=== PATIENT | female | born 1980 | race Caucasian/White ===

== ENCOUNTER 2022-09-07 14:41 | Outpatient (CLI) | payer OTHER, SELFPAY ==
--- NOTE | 2022-09-07 14:45 | CRLHL7_ITS ---
For Patients: As a result of the Century Cures Act, medical imaging exams and procedure reports are released immediately into your electronic medical record. You may view this report before your referring provider. If you have questions, please contact your health care provider. INDICATION: PALPABLE CORD, LEFT MEDIAL CALF COMPARISON: None. TECHNIQUE: A compression venous ultrasound exam was performed of the left lower extremity using mckeon-scale imaging, color Doppler and spectral Doppler analysis. FINDINGS: Sonographic imaging of the left lower extremity demonstrates normal compressibility and color Doppler venous blood flow within the common femoral vein, deep femoral vein, and the proximal greater saphenous vein. Within the thigh, the femoral vein is patent and compressible. At a lower level, the popliteal and posterior tibial veins also show normal compressibility and color Doppler venous blood flow. Limited imaging of the contralateral groin demonstrates a normal spectral waveform and color Doppler venous blood flow within the right common femoral vein. IMPRESSION: Normal venous ultrasound exam. No evidence of deep vein thrombosis within the left lower extremity. Dictated by Hiram Sims MD @ 09/07/2022 4:20:50 PM (Electronically Signed)
== END 2022-09-07 14:42 | disposition home or self-care (01) ==
PROVIDERS: PCP Physician Assistant Medical; Visit Provider Physician Assistant Medical
DX: M79.662 Pain in left lower leg (principal)
CPT/HCPCS: 93971

== ENCOUNTER 2023-01-03 09:45 | Outpatient (RCR) | payer OTHER, SELFPAY ==
--- NOTE | 2022-09-22 12:47 | PT.OPE ---
PT [place] [facility] Eval PT [facility] Start: 09/21/22 12:06 Freq: Status: Active Protocol: Document 09/21/22 13:39 BMS (Rec: 09/21/22 13:39 BMS [id number]) E-signed By Orly Grier PT Physical Therapy Outpatient Evaluation Insurance Information Recert Due Date 12/19/22 Insurance Name [employer] Headaches R51.9 chronic pain G89.29 cervicalga M54.2 M72.2 plantarfasciitis Treating Diagnosis Headaches R51.9 chronic pain G89.29 cervicalga M54.2 M72.2 plantarfasciitis Referring MD Laura Ash Subjective Subjective headaches as long as I can remember, neck and tightness into scap on L also for ~ last 2 years. headaches tend to be left neck to head and forehead. L shoulder clicking with weights. try to work out helps manage stress. Have 2 14 year olds, work 30+ hours/ week. hx depression Get dizzy sometimes when I stand up. They told me years ago I should be doing some eye exercises but I was too busy. Had xrays - 2 mall bone spurs have hard area in my calf but US was clear in vascular lab. by end of day is very frustrating and exhausting hard to focus, sensitivity to light and sounds. . foot I cannot run or jump bc pain. have tried stretching, kinesiotape helps some. , have tried depression meds, ibp, tylenol, the mm relaxers help the most but cant' live on those. 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 massage helps. I tried running x 2 and that really made my foot hurt, wear insoles, etc so I stopped running. Pain Comments 4/10 now, 7-8/10 worst neck and headaches kirit L L foot 2-3/10 now, gets to 9/ 10 worst. 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 rotation mild loss with tightness and pain Strength MMT seated cervical flex/ext/B SB 5/5 Palpation myofascial restrictions through L>R UT, levator and into paraspinals as well as scalenes. B pectoral tightness . decreased PA mobs through mid thoracic, area of restriction T10-12. Significant myofascial restriction with long axis manual distraction from subocciput through thoracic - mild ot mod restricted C0-2 w rotation Balance & Gait not assessed Posture mild head forward, mild L thoracolumbar able to correct with readjust seated position. decreased cervical lordosis Other/Pertinent Objective see obj eval Assessment Assessment/Impression Patient is very pleasant 41 yo female referred for chronic headaches, neck pain, plantar fascia pain. She is more affected by neck and headaches this date. 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 Past medical hx + for WPW successfully resolved w radiofrequency ablation ~ 2 years ago, depression. She works out at gym on elliptical and body weight/light weights . Tried running x 2 which flared up significant plantar fascia pain (rated 2-9/10) and reports a hard lump on medial L calf (had a clear ultrasound for vascularity) - further assess on this to rossi due to time constraints this date. Headaches and neck pain limit looking over shoulders, looking up, is very frustrating and exhausting, making it hard to focus both mentally and eyes and with light and sound sensitivity. Headaches 4-8/10, tend to be left sided for past ~2 years though has had SANCHEZ as long as she can remember. 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 Past treatments include: tylenol+ ibp+caffeine helpsome, mm relaxants help a lot but cannot take frequently, massage helps, chiro did not make a lasting significant difference, has not used TENS nor acupuncture, Reports jaw tightness, did use Invisiline but found herself clenching more. Has some laterality of L condyle with jaw opening and closing but wihtout pop or click. Visible hyerptrophy/ hypertonic L UT scalenes and L scap slightly fwd and mild wing with UE elevation. Lowtrap able to activate but weak with sustained holds. Patient will benefit from skilled physical therapy to imrpove movement patterns/ balance strength/weakness, further vestibular eval and treat this contribution to headaches, further assess/ treat of L plantar fascia. Anticipate good to excellent prognosis though lifestyle modifications may be difficult for her to incorporate. Plan of Care Rehabilitation Potential Good Physical Therapy Goals 1. Pt demo I with home program for self management of symtpoms, for scap stab and breathing and for foot as appropriate to be determined in future sessions. 2. Patient demo abilty to perform her gym workout and daily activities without compensation from neck and head mm. 3. Pt demo full AROM without pain - allowing driving without increased pain ( checking over shoulder, mirrors, etc) 4. complete foot assessment and execute plan 5. Further assess vestibular component of headaches and poss underling vertigo vs vestibular hypofunction. 6. Pt report ability to complete workday without pain > 2/10 in neck and or headache . Coordination/Communication With Referral Source Treatment Plan/Direct Interventions Canalith Repositioning, Electrical Stimulation,Heat, Ice/Cold/Vasopneumatic,Manual Therapy,Neuromuscular Re-ed, Self-Care/Home Management, Therapeutic Activities, Therapeutic Exercises,Traction (Mechanical) Direct Interventions Clarification poss ktape, vs postural taping Comments Frequency/Duration 1-2x/ week x 4-12 weeks pending progress and ability to self manage Patient Will Be Discharged From Therapy Completion of LTG(s),Skills Plateau,Independent w/HEP, Independently Progressing Evaluation Billing Untimed Code Treatment Minutes 35 PT Eval No Charge No Complexity Moderate Certification Information Physician Comment/Change : Physician NPI Number #
== END 2023-05-23 23:59 | disposition home or self-care (01) ==
PROVIDERS: PCP Physician Assistant Medical; Visit Provider Physician Assistant Medical
DX: M54.2 Cervicalgia (principal); R51.9 Headache, unspecified; G89.29 Other chronic pain; M72.2 Plantar fascial fibromatosis; Z51.89 Encounter for other specified aftercare
CPT/HCPCS: 97012; 97110; 97112; 97140; 97162; 97535

== ENCOUNTER 2023-02-28 09:07 | Outpatient (CLI) | payer OTHER, SELFPAY ==
--- NOTE | 2023-02-28 09:15 | CRLHL7_ITS ---
For Patients: As a result of the Cures Act, medical imaging exams and procedure reports are released immediately into your electronic medical record. You may view this report before your referring provider. If you have questions, please contact your health care provider. BILATERAL SCREENING MAMMOGRAM WITH COMPUTER-AIDED DETECTION AND TOMOSYNTHESIS TECHNIQUE: CC and MLO views were obtained. These mammographic images have been obtained using full-field digital technique. These mammographic images were interpreted with the benefit of computer-aided detection. Breast Tomosynthesis was used in this interpretation. COMPARISON FILM: 11/30/21, 07/31/18, 07/31/17. FINDINGS: The breasts are heterogeneously dense, which may obscure small masses IMPRESSION: There is no radiographic evidence for malignancy. ASSESSMENT: BI-RADS Category 1: Negative RECOMMENDATION: Routine screening mammogram in 1 year. A lay language report of this examination will be provided to the patient. TIGIST ESQUIVEL M.D. Diagnostic/Nuclear Medicine Radiologist [email or web address] LONNY:[email or web address] Transcribed: 1:17 p.mRadha winchester/Dictated by: Tigist Esquivel MD @ 02/28/2023 10:47:00 AM (Electronically Signed)
== END 2023-02-28 09:08 | disposition home or self-care (01) ==
LOC: MAMMO 09:08
PROVIDERS: PCP Physician Assistant Medical; Visit Provider Physician Assistant Medical
DX: Z12.31 Encounter for screening mammogram for malignant neoplasm of breast (principal); R92.2 Inconclusive mammogram
CPT/HCPCS: 77063; 77067

== ENCOUNTER 2023-12-24 10:39 | Outpatient (REF) | payer OTHER, SELFPAY | END 2023-12-24 10:40 | disposition home or self-care (01) | LOC: NFLDREF 10:39 | PROVIDERS: PCP Physician Assistant Medical; Referring Provider Physician Assistant Medical; Visit Provider Physician Assistant Medical | DX: Z13.29 Encounter for screening for other suspected endocrine disorder (principal); Z13.220 Encounter for screening for lipoid disorders; Z13.228 Encounter for screening for other metabolic disorders | CPT/HCPCS: 80053; 80061; 84443 ==

== ENCOUNTER 2024-02-07 10:52 | Outpatient (CLI) | payer OTHER, SELFPAY ==
--- NOTE | 2024-02-07 12:08 | W.ANESCHARGE ---
Anesthesia Charges Start Date/Time Anesthesia Start Date: 02/07/24 Anesthesia Start Time: 11:44 Stop Date/Time Anesthesia Stop Date: 02/07/24 Anesthesia Stop Time: 12:05
== END 2024-02-07 10:53 | disposition home or self-care (01) ==
LOC: OP CLINIC 10:53
PROVIDERS: PCP Physician Assistant Medical; Visit Provider Internal Medicine
DX: Z12.11 Encounter for screening for malignant neoplasm of colon (principal); K63.5 Polyp of colon
CPT/HCPCS: 00812; 45380; 88305; J2704

== ENCOUNTER 2024-08-10 17:42 | Outpatient (CLI) | payer OTHER, SELFPAY | END 2024-08-10 17:43 | disposition home or self-care (01) | PROVIDERS: PCP Physician Assistant Medical; Visit Provider Physician Assistant Medical | DX: R00.2 Palpitations (principal) | CPT/HCPCS: 80053; 83735; 84443 ==

== ENCOUNTER 2024-08-17 08:35 | Outpatient (CLI) | payer OTHER, SELFPAY | END 2024-08-17 08:36 | disposition home or self-care (01) | LOC: NFLDREF 08-19 09:57 | PROVIDERS: PCP Physician Assistant Medical; Referring Provider Physician Assistant Medical; Visit Provider Physician Assistant Medical | DX: R00.2 Palpitations (principal) | CPT/HCPCS: 82533 ==

== ENCOUNTER 2025-01-14 11:25 | Outpatient (CLI) | payer OTHER, SELFPAY ==
--- NOTE | 2025-01-14 11:30 | CRLHL7_ITS ---
For Patients: As a result of the Century Cures Act, medical imaging exams and procedure reports are released immediately into your electronic medical record. You may view this report before your referring provider. If you have questions, please contact your health care provider. BILATERAL DIGITAL SCREENING MAMMOGRAM WITH COMPUTER-AIDED DETECTION AND TOMOSYNTHESIS CLINICAL HISTORY: Routine screening exam. COMPARISON: 02/28/23, 11/30/21, 08/04/20. TECHNIQUE: Digital mammogram in CC and MLO projections including computer-aided detection (CAD). Tomosynthesis was used in this interpretation. BREAST COMPOSITION: The breasts are heterogeneously dense, which may obscure small masses. FINDINGS: RIGHT Breast: No suspicious findings. LEFT Breast: Focal asymmetric density within the lower inner quadrant 4 cm from the nipple. IMPRESSION: LEFT breast asymmetry/mass. RECOMMENDATIONS: Additional mammographic views of the LEFT breast including 3D spot compression CC/MLO. LEFT breast ultrasound may also be required. The [facility] will contact the patient. A lay language report of this examination will be provided to the patient. BI-RADS Category 0: Incomplete: Need Additional Imaging Evaluation Dictated by Hiram Sims MD @ 01/15/2025 9:36:43 AM jj/Dictated by: Hiram Sims MD @ 01/15/2025 9:36:00 AM (Electronically Signed)
== END 2025-01-14 11:26 | disposition home or self-care (01) ==
LOC: MAMMO 11:26
PROVIDERS: PCP Physician Assistant Medical; Visit Provider Physician Assistant Medical
DX: Z12.31 Encounter for screening mammogram for malignant neoplasm of breast (principal); N63.20 Unspecified lump in the left breast, unspecified quadrant; R92.333 Mammographic heterogeneous density, bilateral breasts
CPT/HCPCS: 77063; 77067

== ENCOUNTER 2025-01-19 09:27 | Outpatient (CLI) | payer OTHER, SELFPAY ==
--- NOTE | 2025-01-19 09:45 | CRLHL7_ITS ---
For Patients: As a result of the Century Cures Act, medical imaging exams and procedure reports are released immediately into your electronic medical record. You may view this report before your referring provider. If you have questions, please contact your health care provider. CLINICAL HISTORY: LEFT breast mass/asymmetry. COMPARISON: 01/14/25, 02/28/23, 11/30/21 TECHNIQUE: Digital LEFT mammogram in 2 projections. Tomosynthesis was used in this interpretation. Real-time ultrasound imaging of LEFT breast with imaging documentation. Scanning was performed by both the technologist and the radiologist. BREAST COMPOSITION: There are scattered areas of fibroglandular density. FINDINGS: 3D spot compression CC/MLO left breast mammogram images submitted. Persistent asymmetric density with architectural distortion within the medial left breast CC view. Targeted left breast ultrasound performed at 8 o`clock 5 cm from the nipple. At this location, there is a small subtle hypoechoic mass with distal acoustic shadowing measuring 4 x 4 x 4 millimeters. IMPRESSION: Subtle 4 millimeter hypoechoic shadowing lesion at mid depth left breast 8 o`clock 5 cm from the nipple. RECOMMENDATIONS: Ultrasound-guided core needle biopsy. A lay language report of this examination will be provided to the patient. BI-RADS Category 4. Suspicious. Dictated by Hiram iSms MD @ 01/19/2025 10:41:46 AM (Electronically Signed)
--- NOTE | 2025-01-19 10:15 | CRLHL7_ITS ---
For Patients: As a result of the Cures Act, medical imaging exams and procedure reports are released immediately into your electronic medical record. You may view this report before your referring provider. If you have questions, please contact your health care provider. SEE DIGITAL DIAGNOSTIC LEFT MAMMOGRAM PERFORMED SAME DAY CRL:[email or web address] winchester/Dictated by: Hiram Sims MD @ 01/19/2025 10:39:00 AM (Electronically Signed)
== END 2025-01-19 09:28 | disposition home or self-care (01) ==
LOC: MAMMO 09:28
PROVIDERS: PCP Physician Assistant Medical; Visit Provider Obstetrics & Gynecology
DX: N63.20 Unspecified lump in the left breast, unspecified quadrant (principal); R92.8 Other abnormal and inconclusive findings on diagnostic imaging of breast
CPT/HCPCS: 76642; 77065; G0279

== ENCOUNTER 2025-01-21 09:06 | Outpatient (CLI) | payer OTHER, SELFPAY ==
--- NOTE | 2025-01-21 09:15 | CRLHL7_ITS ---
For Patients: As a result of the Century Cures Act, medical imaging exams and procedure reports are released immediately into your electronic medical record. You may view this report before your referring provider. If you have questions, please contact your health care provider. ULTRASOUND-GUIDED BREAST BIOPSY AND POST-BIOPSY DIGITAL MAMMOGRAM FOR BIOPSY MARKER PLACEMENT CLINICAL HISTORY: Indeterminate lesion LEFT breast. COMPARISON STUDIES: 01/19/2025. TECHNIQUE: Real-time ultrasound with image documentation was used for targeting the breast lesion. Core biopsy specimens were obtained using an automated gun with a 16-gauge biopsy needle. Post-biopsy CC and ML digital mammograms were obtained to document position of the biopsy marker. CONSENT and TIME OUT: The procedure, risks, and alternatives were explained to the patient and a consent was signed. Reese Protocol was followed including pre-procedure verification that relevant information/documentation was available, reviewed and properly matched to the patient; consent accurate and complete; and equipment and supplies available. Time Out was conducted just prior to starting procedure to verify the four required elements: patient identity, correct side/site marked (if applicable), procedure, relevant images/results properly labeled and displayed (if applicable). PROCEDURE: The patient was positioned supine on the ultrasound table. The breast was prepped with ChloraPrep. 6 cc of 1 percent lidocaine used for local anesthesia. Core samples were obtained. A sterile metal biopsy clip was placed percutaneously to jennifer the lesion position within the breast. The specimens were placed in 10% formalin and sent to the pathology department. Pressure was held on the biopsy site until all bleeding subsided. The skin incision was closed with Steri-Strips. An ice pack was positioned over the biopsy site. Post-biopsy instructions were reviewed with the patient, and a written copy was given to her. LATERALITY: LEFT breast. LESION: Hypoechoic solid nodule measuring 4 x 4 x 4 millimeters at 8 o`clock 5 cm from the nipple. SUSPICION FOR MALIGNANCY: High. NUMBER OF SAMPLES: 6. BIOPSY CLIP SHAPE: Oval. PROXIMITY OF CLIP TO TARGET: Within the lesion. IMPRESSION: Ultrasound-guided breast biopsy. When the pathology report is available, an addendum to this report will be made. ACR not applicable Dictated by Hiram Sims MD @ 01/21/2025 10:05:56 AM jj/Dictated by: Hiram Sims MD @ 01/21/2025 10:05:00 AM (Electronically Signed)
--- NOTE | 2025-01-21 10:00 | CRLHL7_ITS ---
For Patients: As a result of the Century Cures Act, medical imaging exams and procedure reports are released immediately into your electronic medical record. You may view this report before your referring provider. If you have questions, please contact your health care provider. SEE ULTRASOUND-GUIDED LEFT BREAST BIOPSY PERFORMED SAME DAY CRL:ranulfo winchester/Dictated by: Hiram Sims MD @ 01/21/2025 10:13:00 AM (Electronically Signed)
--- NOTE | 2025-01-26 08:34 | ONC.NURNOTE ---
Reviewed updated breast pathology with receptors, ki 67 results with pt via phone; she verbalizes understanding.
== END 2025-01-21 09:07 | disposition home or self-care (01) ==
LOC: US 09:06
PROVIDERS: PCP Physician Assistant Medical; Visit Provider Physician Assistant Medical
DX: N63.20 Unspecified lump in the left breast, unspecified quadrant (principal); C50.912 Malignant neoplasm of unspecified site of left female breast
CPT/HCPCS: 19083; 77065; A4648; A4649

== ENCOUNTER 2025-02-03 07:08 | Outpatient (CLI) | payer OTHER, SELFPAY ==
--- NOTE | 2025-02-03 07:15 | CRLHL7_ITS ---
For Patients: As a result of the 21st Century Cures Act, medical imaging exams and procedure reports are released immediately into your electronic medical record. You may view this report before your referring provider. If you have questions, please contact your health care provider. BILATERAL BREAST MRI WITHOUT AND WITH GADOLINIUM CLINICAL HISTORY: 44-year-old with recent diagnosis of left breast invasive lobular carcinoma, grade 2 and associated LCIS. Located in left lower inner quadrant, 8 o`clock position, 4-5 cm from nipple. Associated with mammographic asymmetry and architectural distortion, and sonographic 0.4 cm hypoechoic mass with posterior shadowing. INDICATION FOR BREAST MRI: Staging of newly diagnosed breast cancer and screening of contralateral breast. Regional lymph nodes will also be assessed. COMPARISON STUDIES: No previous MRIs. Screening mammogram 01/14/2025 and other prior mammograms dating back to 08/04/2020, diagnostic mammogram and ultrasound 01/19/2025, ultrasound-guided needle core biopsy and post biopsy clip placement mammogram 01/21/2025. CONTRAST: 14 cc Dotarem TECHNIQUE: The patient was positioned prone using a breast coil. Multiple imaging sequences were obtained using 1-1.5 mm thick slices with no gap. The image sequences include T2-weighted STIR in the axial plane, T1-weighted nonfat-saturated gradient echo in the axial plane, pre- and post-contrast T1-weighted FLASH 3D with fat suppression in the axial plane, and T1-weighted FLASH high resolution 3D with fat suppression in the sagittal plane. Image post-processing was performed on a Plug[employer] workstation. Complex 3D rendering including maximum intensity projections (MIPS) and volumetric renderings were obtained to optimize visualization of the extent of pathology and relationship to the nipple, skin, and chest wall. This aids in determining feasibility of breast conservation surgery. Subtraction, multiplanar reconstruction, mean curve determination, and angiogenesis mapping were also performed. The study was technically adequate. FINDINGS: Amount of Fibroglandular Tissue: Scattered fibroglandular tissue. Breast Background Enhancement: Mild. RIGHT Breast: No suspicious findings. LEFT Breast: Left 8 o`clock, 4 cm from nipple: -Biopsied 0.5 x 0.4 cm oval irregular mass with associated clip artifact showing rapid initial uptake and plateau delayed kinetics. -There is linear non-mass enhancement extending 1.1 cm anteromedial from the biopsied carcinoma, to within 3 cm of nipple. Sub threshold persistent kinetics. This likely correlates to mammographic distortion and a few calcifications in this region. Left 10 o`clock, 2 cm from nipple: Linear clumped non-mass enhancement measuring 1.1 cm AP x 0.9 cm medial-lateral. Sub threshold persistent kinetics. Lymph Nodes: No axillary or internal mammary lymphadenopathy. IMPRESSIONS AND RECOMMENDATIONS: 1. Left 8 o`clock, 4 cm from nipple: 0.5 cm biopsied oval irregular carcinoma with 1.1 cm suspicious linear non-mass enhancement extending anteromedial from the biopsied mass, to within 3 cm of nipple. Likely correlates to mammographic distortion and a few calcifications in this region. Consider extension of lumpectomy margins if breast conservation is planned. 2. Left 10 o`clock, 2 cm from nipple: Suspicious 1.1 x 0.9 cm linear clumped non-mass enhancement. Recommend MRI guided needle core biopsy. BI-RADS Category 4: Suspicious Dictated by Leny Milner MD @ 02/03/2025 4:37:45 PM (Electronically Signed)
== END 2025-02-03 07:09 | disposition home or self-care (01) ==
LOC: MRI 07:09
PROVIDERS: PCP Physician Assistant Medical; Visit Provider Surgery
DX: C50.912 Malignant neoplasm of unspecified site of left female breast (principal)
CPT/HCPCS: 77049; A9575

== ENCOUNTER 2025-02-11 10:55 | Outpatient (CLI) | payer OTHER, SELFPAY | END 2025-02-11 10:56 | disposition home or self-care (01) | LOC: NFLDREF 10:55 | PROVIDERS: PCP Physician Assistant Medical; Visit Provider Obstetrics & Gynecology | DX: R63.5 Abnormal weight gain (principal) | CPT/HCPCS: 84443 ==

== ENCOUNTER 2025-02-25 11:09 | Outpatient (CLI) | payer OTHER, SELFPAY | END 2025-02-25 11:10 | disposition home or self-care (01) | LOC: NFLDREF 03-01 00:03 | PROVIDERS: PCP Physician Assistant Medical; Referring Provider Physician Assistant Medical; Visit Provider Physician Assistant Medical | DX: Z13.6 Encounter for screening for cardiovascular disorders (principal); Z13.1 Encounter for screening for diabetes mellitus | CPT/HCPCS: 80061; 82947 ==

== ENCOUNTER 2025-03-02 08:01 | Day surgery (SDC) | payer OTHER, SELFPAY ==
--- NOTE | 2025-03-02 07:52 | CRLHL7_ITS ---
For Patients: As a result of the Century Cures Act, medical imaging exams and procedure reports are released immediately into your electronic medical record. You may view this report before your referring provider. If you have questions, please contact your health care provider. INDICATION: Cough, low-grade fever, preoperative assessment. COMPARISON: 08/10/2024 TECHNIQUE: 1 view chest radiograph. FINDINGS: Devices: None. Lung volumes are good. Patchy and somewhat ill-defined opacification/consolidation in the left upper lobe. No pulmonary edema. No pleural effusion. No pneumothorax. No pneumomediastinum. Heart size is normal. Bones: No acute findings. IMPRESSION: Left upper lobe opacities are probably pneumonia given the clinical symptoms. No pleural effusion. Dictated by Chanda Quinones MD @ 03/02/2025 9:08:11 AM (Electronically Signed)
[2025-03-02 08:48] VITALS: BP 122/74; PULSE 118; RESP 18; TEMP 37.2; O2SAT 95
[2025-03-02] MEDS: SODIUM CHLORIDE 0.9 % (FLUSH) 10 ML SYRINGE IVF (09:00)
[2025-03-02] MEDS: LACTATED RINGERS 1000 ML 1,000 ML 100 ML IV (09:00)
[2025-03-02 09:02] LABS: Creatinine* 0.8 mg/dL (0.5-1.5); Estimated Glomerular Filt Rate 92 ml/min
--- NOTE | 2025-03-02 09:57 | SUR.PREOP ---
CXR shows PNX. surgeon and anesthesia in to speak with patient. plan in place for reschedule. pt verbalized understanding
--- NOTE | 2025-03-02 10:23 | SUR.PHASEII ---
pt left unit at 1015
--- NOTE | 2025-03-02 11:06 | PM.GSPN ---
Subjective Subjective Date Seen: 03/02/25 Interval history: Patient presented for her scheduled bilateral mastectomy. Given her symptoms of cough and fevers last week, chest x-ray was obtained. The chest x-ray was read as possible hazy opacities in the left upper lobe concerning for pneumonia. Patient stated that she was having hard time sleeping because of coughing. Her fevers continue to be low-grade. We elected to reschedule her mastectomy for next week. Patient was placed on levofloxacin for 7 days. Exam Const: Vital Signs, click to edit/add: Vital Signs - 24 hr 03/02/25 08:48 Temperature 99.0 F Pulse Rate 118 H Respiratory Rate 18 Blood Pressure 122/74 Pulse Oximetry 95 Oxygen Delivery Me thod Room Air
== END 2025-03-02 14:00 | disposition home or self-care (01) ==
LOC: OR 08:03 → MEDSURG 08:04 → OR 13:54
PROVIDERS: PCP Physician Assistant Medical; Visit Provider Surgery
DX: Z53.09 Procedure and treatment not carried out because of other contraindication (principal); R50.9 Fever, unspecified; R05.9 Cough, unspecified; R91.8 Other nonspecific abnormal finding of lung field
CPT/HCPCS: 36415; 71045; 82565; J7120

== ENCOUNTER 2025-03-09 10:22 | Outpatient (CLI) | payer OTHER, SELFPAY ==
--- NOTE | 2025-03-09 09:30 | CRLHL7_ITS ---
For Patients: As a result of the Century Cures Act, medical imaging exams and procedure reports are released immediately into your electronic medical record. You may view this report before your referring provider. If you have questions, please contact your health care provider. INDICATION: Left-sided breast cancer. Injection for sentinel lymph node scintigraphy. PROCEDURE: Informed consent was obtained by the on-site staff. The on-site staff discussed the risks and benefits of the procedure. The patient agreed to proceed. Utilizing sterile technique, 1.283 millicuries of technetium-labeled sulfur colloid was injected within an intradermal location superolateral to the left nipple-areolar complex. The patient tolerated the injection well. No immediate complications were documented. No subsequent imaging. IMPRESSION: Technically successful injection of the left breast for a left-sided breast cancer. TIGIST ESQUIVEL M.D. Diagnostic/Nuclear Medicine Radiologist [email or web address] Transcribed: 2:[address]/Dictated by: Tigist Esquivel MD @ 03/09/2025 2:08:00 PM (Electronically Signed)
== END 2025-03-09 10:23 | disposition home or self-care (01) ==
LOC: NM 10:23
PROVIDERS: PCP Physician Assistant Medical; Visit Provider Surgery
DX: C50.912 Malignant neoplasm of unspecified site of left female breast (principal)
CPT/HCPCS: 38792; A9270; A9541; J0330; J0690; J1100; J1630; J1885; J2250; J2405; J2704; J2710; J3010; J3490

== ENCOUNTER 2025-03-09 12:40 | Inpatient (IN) | payer OTHER, SELFPAY ==
[2025-03-09] VITALS (22 sets, daily range): BP systolic 91–127; BP diastolic 48–69; PULSE 70–101; RESP 12–18; TEMP 36.4–37.3; O2SAT 90–97; BMI 25.9
[2025-03-09] MEDS: SODIUM CHLORIDE 0.9 % (FLUSH) 10 ML SYRINGE IVF (08:45)
[2025-03-09] MEDS: LACTATED RINGERS 1000 ML 1,000 ML 100 ML IV (08:45)
[2025-03-09] MEDS: SCOPOLAMINE 1 MG/3 DAY PATCH 1 PATCH TRANSDERMA (09:24)
--- NOTE | 2025-03-09 09:55 | W.PM.H&PU ---
History & Physical Update History & Physical Update H&P Reviewed and patient assessed: No changes noted H&P Updates: Patient is feeling better from her cough and pneumonia.
--- NOTE | 2025-03-09 10:09 | P.ANES_ITS ---
Anesthesia Charges Start Date/Time Anesthesia Start Date: 03/09/25 Anesthesia Start Time: 09:57 Stop Date/Time Anesthesia Stop Date: 03/09/25 Anesthesia Stop Time: 12:50 Coding CPT Codes CPT Codes: ANESTH SURGERY OF SHOULDER - 26903 ([id number]) P2 - PATIENT W/MILD SYST DISEASE, QK - PROFESSIONAL DEVELOPMENT MANAGER 2-4 CNCRNT ANES PROC, QX - CUSTOM DESIGNER SVC W/ MD MED DIRECTION
--- NOTE | 2025-03-09 10:09 | W.ANESCHARGE ---
Anesthesia Charges Start Date/Time Anesthesia Start Date: 03/09/25 Anesthesia Start Time: 09:57 Stop Date/Time Anesthesia Stop Date: 03/09/25 Anesthesia Stop Time: 12:50 Coding CPT Codes CPT Codes: ANESTH SURGERY OF SHOULDER - 50563 ([id number]) P2 - PATIENT W/MILD SYST DISEASE, QK - TRAINING COORDINATOR 2-4 CNCRNT ANES PROC, QX - ROLL ON WORKER SVC W/ MD MED DIRECTION
--- NOTE | 2025-03-09 10:09 | W.PM.NB ---
Nerve Block Nerve Block Time Seen by Provider: 10:03 Date Seen: 03/09/25 Type of block requested by surgeon for post-operative analgesia: intercostal and intercostal add on Side: bilateral Time out performed: Yes Verification of patient name: Yes Verification of date of : Yes Site marking: site marked Name of person performing procedure: Ayan Continuous monitoring Was continuous monitoring of O2 sat, B/P, residential monitor, recorded every 15 minutes?: Yes Procedure Checklist: sterile prep, needles and gloves Ultrasound guided. Images saved: Yes Medications given in 5ml increments after negative aspiration: Marcaine %: 0.25 mL: 20 and Exparel mL: 20 Needle gauge: 20 Additional comments: equal mixture exparel and 0.25% bupivacaine 10ml deposited at PECS 1 and 2 bilaterally Block Charges Block Charge (with Pro Fee): Intercostal Nerve Block Use of Ultrasound Machine for Block: Yes- US Guidance/pain block
[2025-03-09] MEDS: CEFAZOLIN 1 GM inj IVP (10:12)
--- NOTE | 2025-03-09 12:02 | CRLHL7_ITS ---
For Patients: As a result of the Century Cures Act, medical imaging exams and procedure reports are released immediately into your electronic medical record. You may view this report before your referring provider. If you have questions, please contact your health care provider. CLINICAL HISTORY: Left breast cancer COMPARISON: 01/21/25 FINDINGS: Two views of the left breast mastectomy specimen submitted. The biopsied mass and biopsy clip are present in the specimen. IMPRESSION: Mastectomy specimen contains the primary lesion and biopsy clip. ACR not applicable. Dictated by Hiram Sims MD @ 03/09/2025 12:27:38 PM Dictated by: Hiram Sims MD @ 03/09/2025 12:27:40 (Electronically Signed)
[2025-03-09] MEDS: LACTATED RINGERS 1000 ML 1,000 ML 125 ML IV (12:15)
[2025-03-09] MEDS: KETOROLAC 15 MG/ML inj IVP (12:28)
--- NOTE | 2025-03-09 12:50 | P.GSOP_ITS ---
Operative Note Date of procedure: 03/09/25 Pre-op diagnosis: 1. Left invasive ductal carcinoma and left invasive lobular carcinoma. Post-op diagnosis: Same Type of Procedure: 1. Right prophylactic mastectomy. 2. Left therapeutic mastectomy. 3. Left sentinel lymph node biopsy. Indications: 44-year-old female was seen in clinic with a newly diagnosed 4 x 4 mm invasive lobular carcinoma in the left breast at 8:00 5 cm from the nipple. Her carcinoma was grade 2 of 3 with no angiolymphatic invasion, ER/DE positive and HER2 negative with Ki I 67 of 9%. Patient had genetic testing which was negative. Bilateral MRI was obtained that showed an additional suspicious lesion in the left breast at 10:00 2 cm from the nipple. This was measuring 1.1 x 0.9 cm. MRI guided biopsy was obtained that showed invasive ductal carcinoma with tubular features, ER/DE positive and HER2 negative. Surgical options were discussed with the patient, and she elected to proceed with bilateral mastectomy. Left sentinel lymph node biopsy was also recommended. The procedure was discussed in detail. The risks associated procedure including infection, bleeding, the need for additional procedures, and possible need for axillary node dissection were all discussed with the patient, and she agreed to proceed. Procedure Description: After discussing the risks and benefits of the procedure, the patient signed informed consent.? The operative site was marked and the patient was brought to the operating room and placed on the operating table in supine position.? Care was taken to pad the patient's pressure points.?? The patient was then intubated by anesthesia.?Bilateral PEC blocks were administered by Anesthesia.? Radioactive tracer was personally injected by by me next to the left nipple in same-day surgery. 4 ml (milliliters) of Lymphazurin blue was personally injected by me near the left nipple after patient was intubated for sentinel lymph node identification. The operative site was then prepped and draped in the usual sterile fashion.? A time-out was then performed. I first proceeded with the right prophylactic?mastectomy. An elliptical horizontal skin incision was made around the nipple-areolar complex using a scalpel.? Dermis was divided with cautery.? Rakes and Robert retractors were used for retraction throughout the case.? Skin flaps were developed circumferentially in a relatively avascular placed between subcutaneous fat and breast tissue using manual traction between the skin flaps and breast tissue.? Dissection was performed to just below the clavicle superiorly, to the lateral border of pectoralis major muscle laterally, to the sternal border medially, and to the inframammary fold inferiorly.? This was all done with cautery.? Hemostasis throughout the case was achieved with cautery and Vicryl ties. ? When the breast tissue was dissected circumferentially, it was then removed in a medial to lateral fashion from Pectoralis using electrocautery. The pectoralis major fascia was included with the specimen. The specimen was labeled for orientation with a single stitch at 12:00 and sent to pathology for margins.? Mastectomy cavity was irrigated with normal saline.? Hemostasis was achieved with cautery.? A 15F Kirt drain was placed inferior and lateral to the breast through a small stab incision and secured in place with nylon suture. The edges of surgical incision were re-approximated using interrupted 2-0 and 3-0 Vicryl sutures.? The skin was closed with a running subcuticular 4-0 Monocryl stitch. The right chest was then covered with a sterile towel and we proceeded with left therapeutic mastectomy. An elliptical horizontal skin incision was made around the left nipple-areolar complex using a scalpel.? Dermis was divided with cautery.? Rakes and Robert retractors were used for retraction throughout the case.? Skin flaps were developed circumferentially in a relatively avascular placed between subcutaneous fat and breast tissue using manual traction between the skin flaps and breast tissue.? Dissection was performed to just below the clavicle superiorly, to the lateral border of pectoralis major muscle laterally, to the sternal border medially, and to the inframammary fold inferiorly.? This was all done with cautery.? Hemostasis throughout the case was achieved with cautery and Vicryl ties. The breast was circumferentially dissected from subcutaneous flaps, I then proceeded with left sentinel lymph node biopsy. A [place] counter was brought onto the field through the left mastectomy incision in the left axilla to identify the best area for the sentinel node biopsy. Deltopectoral fascia was then incised with cautery. A green lymph node was identified and appeared to have radioactive signal. This was excised with cautery. This had a count of 1015 and was sent to pathology as the sentinel node #1. Axillary rojas tissue was examined again with the Vincent counter and an additional second left sentinel lymph node was identified with a count of 662. This was sent to pathology as sentinel lymph node #2. Vincent counter was again brought into the left axilla, and no additional significant signal was identified. Hemostasis was achieved with cautery. ? We then proceeded with taking the breast off the fascia. This was done with cautery. The fascia was included with the left breast specimen. The left breast was marked with the a stitch at 12:00. This was sent to mammography to confirm presence of 1 clip (the second clip was thought to be lost during MRI guided biopsy). The specimen was then sent to pathology. Pathology is confirmed that 2 sentinel lymph nodes had no evidence of breast cancer on frozen section. The left breast had negative margins and both tumors were identified. ? Left mastectomy cavity was irrigated with normal saline.? Hemostasis was achieved with cautery.? A 15F Kirt drain was placed inferior and lateral to the breast through a small stab incision and secured in place with nylon suture. The edges of surgical incision were re-approximated using interrupted 2-0 and 3-0 Vi cryl sutures.? The skin was closed with a running subcuticular 4-0 Monocryl stitch. Steri strips, sterile fluffs, and ABD pad were applied over both mastectomy incisions.? Drain sponges were placed under the drains.? The chest was wrapped with an Richi wrap.? All counts were correct at the end of the case. The patient tolerated this procedure well and was transferred to the?PACU in stable condition. Findings: Both tumors were identified by pathology in the left breast. Two sentinel lymph nodes were identified and did not have evidence of cancer on frozen. Anesthesia: GETA Surgeon: Chevy Kraft MD Estimated blood loss (mL): 25 Additional Specimen Information: 1. Right mastectomy. 2. Left sentinel lymph node #1. 3. Left sentinel lymph node #2. 4. Left mastectomy. Condition: stable Disposition: PACU [place] Node Biopsy for Breast Cancer Operation Performed with Curative Intent: Yes Tracers used to Identify sentinel nodes in the upfront surgery (non-neoadjuvant) setting: Dye and Radioactive Tracer Tracers used to identify sentinel nodes in the neoadjuvant setting: N/A All nodes (colored or non-colored) present at the end of a dye filled lymphatic channel were removed: Yes All significantly radioactive nodes were removed: Yes All palpably suspicious nodes were removed: Not Applicable Biopsy proven positive nodes marked with clips prior to chemotherapy were identified and removed: Not Applicable
--- NOTE | 2025-03-09 12:57 | P.ANES_ITS ---
Anesthesia Charges Start Date/Time Anesthesia Start Date: 03/09/25 Anesthesia Start Time: 09:57 Stop Date/Time Anesthesia Stop Date: 03/09/25 Anesthesia Stop Time: 12:50 Coding CPT Codes CPT Codes: ANESTH SURGERY OF SHOULDER - 01967 ([id number]) P2 - PATIENT W/MILD SYST DISEASE, QK - ARMATURE WINDER AUTOMOTIVE 2-4 CNCRNT ANES PROC, QX - NUT PROCESS HELPER SVC W/ MD MED DIRECTION
--- NOTE | 2025-03-09 12:57 | W.ANESCHARGE ---
Anesthesia Charges Start Date/Time Anesthesia Start Date: 03/09/25 Anesthesia Start Time: 09:57 Stop Date/Time Anesthesia Stop Date: 03/09/25 Anesthesia Stop Time: 12:50 Coding CPT Codes CPT Codes: ANESTH SURGERY OF SHOULDER - 90348 ([id number]) P2 - PATIENT W/MILD SYST DISEASE, QK - CERAMIC PRODUCTS SALES ENGINEER 2-4 CNCRNT ANES PROC, QX - BEHAVIOR SPECIALIST SVC W/ MD MED DIRECTION
--- NOTE | 2025-03-09 12:58 | PM.GSPRC ---
Operative Note Date of procedure: 03/09/25 Procedure Description: After discussing the risks and benefits of the procedure, the patient signed informed consent.? The operative site was marked and the patient was brought to the operating room and placed on the operating table in supine position.? Care was taken to pad the patient's pressure points.?? The patient was then [intubated/given sedation] by anesthesia.?? The operative site was then prepped and draped in the usual sterile fashion.? A time-out was then performed. Sterile dressings were then applied. ? The patient was then woken and transported to the recovery area in stable condition. ? The patient tolerated the procedure well. Surgeon: Chevy Kraft MD
[2025-03-09] MEDS: HYDROmorphone 0.5 mg/0.5 ml inj IVP (15:46)
--- NOTE | 2025-03-09 16:13 | PC.NURSE ---
End of shift note: VS WNL. Afebrile. Pt is on 1 L O2 via NC. Pt denies nausea, pt denies pain meds at this time. Pt is tolerating clear liquid diet. Pt ambulated SBA to bathroom. Right and left STAR drains are intact and patent. Abdominal wrap is C/D/I.
[2025-03-09] MEDS: HYDROCODONE-ACETAMIN 5-325 MG 1 TAB PO (20:39)
--- NOTE | 2025-03-09 22:11 | PC.NURSE ---
Patient admitted s/p double mastectomy, STAR drains x 2 patent and stripped and drained per order. Dressing clean dry, and intact. Patient tolerating regular diet and pain managed with prn medications. Patient up with SBA. Patient states urgency with voiding.
[2025-03-10 03:00] VITALS: BP 99/50; PULSE 65; RESP 16; TEMP 36.5; O2SAT 93
[2025-03-10 07:00] VITALS: RESP 16; O2SAT 97
--- NOTE | 2025-03-10 07:02 | PC.NURSE ---
[id number]: Pt alert oriented and vitally stable. Pain minimal and tolerable throughout shift. STAR drains patent and draining. Left drain dressing had a small amount of noe blood, dressing changed now C/D/I. Scopolamine patch behind L ear. Left arm restricted. Pt Independent. In bed,?appears to be resting call light within reach. ?
[2025-03-10 08:17] VITALS: BP 100/50; PULSE 80; RESP 16; TEMP 36.6; O2SAT 93
[2025-03-10] MEDS: ACETAMINOPHEN 325 MG TABLET 650 MG PO (09:12)
[2025-03-10 11:00] VITALS: BP 105/75; PULSE 70; RESP 16; TEMP 36.4; O2SAT 94
[2025-03-10] MEDS: HYDROCODONE-ACETAMIN 5-325 MG 1 TAB PO (14:39)
--- NOTE | 2025-03-10 15:09 | P.DS_ITS ---
DS: Providers Provider Date Seen: 03/10/25 Date of admission: 03/09/25 12:40 Primary care physician: Laura Ash PA-C Admitting Clinician: Chevy Kraft MD Attending Physician on discharge: Chevy Kraft MD DS: Diagnosis Discharge Diagnosis (1) S/P bilateral mastectomy: Status: Acute Problem details: Left SLNB DS: Summary Hospital Course Hospital Course: 44-year-old female was admitted to the hospital after she underwent bilateral mastectomy and left sentinel lymph node biopsy. Patient did well postoperatively. Her pain was well controlled. Her bilateral drains put out small amount of bloody serosanguineous fluid. She ambulated and urinated. She tolerated regular diet. Time Spent with Patient Time attestation: Total time spent providing and/or coordinating discharge services: Exam Narrative: Exam Narrative: Chest: Bilateral incisions are without erythema or necrosis. There is no fluid palpated at the bilateral incisions. There is no expanding hematoma. Drains are in place with small amount of bloody serosanguineous fluid. Const: Vital Signs, click to edit/add: Vital Signs - 24 hr 03/09/25 15:10 03/09/25 15:40 03/09/25 16:54 Temperature 98.3 F 99.2 F 99.2 F Pulse Rate 72 70 70 Respiratory Rate 18 12 12 Blood Pressure 101/54 L 105/69 105/69 Pulse Oximetry 96 95 94 Oxygen Delivery Me thod Nasal Cannula Nasal Cannula Nasal Cannula Oxygen Flow Rate 1 1 1 03/09/25 17:40 03/09/25 18:21 03/09/25 18:53 Temperature 99.2 F 99.2 F 99.2 F Pulse Rate 70 70 70 Respiratory Rate 12 12 14 Blood Pressure 106/68 106/60 102/67 Pulse Oximetry 94 94 95 Oxygen Delivery Me thod Nasal Cannula Room Air Room Air Oxygen Flow Rate 1 1 1 03/09/25 19:25 03/09/25 20:44 03/09/25 23:00 Temperature 99.2 F 99.2 F 97.6 F Pulse Rate 70 70 73 Respiratory Rate 14 14 16 Blood Pressure 103/57 L 111/56 L 91/49 L Pulse Oximetry 93 95 93 Oxygen Delivery Me thod Room Air Room Air Room Air Oxygen Flow Rate 03/09/25 23:00 03/09/25 23:00 03/10/25 03:00 Temperature 97.7 F Pulse Rate 65 Respiratory Rate 16 16 Blood Pressure 99/50 L Pulse Oximetry 97 93 Oxygen Delivery Me thod Room Air Oxygen Flow Rate 03/10/25 07:00 03/10/25 08:17 03/10/25 11:00 Temperature 97.8 F 97.5 F L Pulse Rate 80 70 Respiratory Rate 16 16 16 Blood Pressure 100/50 L 105/75 Pulse Oximetry 97 93 94 Oxygen Delivery Me thod Room Air Room Air Oxygen Flow Rate Discharge Plan Discharge Disposition: Home, Self-Care Date of Admission: 03/09/25 12:40 Primary Care Provider: Laura Ash Condition: Stable Anticipated Discharge Date/Time: 03/10/25 15:08 Discharge Medications: New hydrocodone-acetaminophen 5-325 mg tablet 1 tab PO Q6H PRN (Reason: pain) Qty: 25 0RF Continued omega-3 fatty acids 500 mg capsule 500 mg PO QDAY cod liver oil Oil 5 ml PO QDAY propranolol 20 mg tablet 20 mg PO BID PRN (Reason: anxiety) Qty: 60 1RF Rx Instructions: 1 tablet twice daily as needed for increased anxiousness cyclobenzaprine 10 mg tablet 10 mg PO BID PRN (Reason: muscle spasm) Qty: 30 0RF Rx Instructions: one tablet twice daily as needed for muscle tightness cholecalciferol (vitamin D3) 25 mcg (1,000 unit) tablet 1,000 unit PO DAILY Liver multivitamin PO Creatine PO sumatriptan succinate 50 mg tablet 50 mg PO Q2H PRN (Reason: migraine headache) Rx Instructions: Take one tablet by mouth at onset of headache, may repeat in 2 hours as needed for a maximun of 2 tablets in 24 hours. betamethasone dipropionate 0.05 % lotion 1 applic topical BID PRN (Reason: itching) Qty: 60 3RF hydroxyzine pamoate 25 mg capsule 25 - 50 mg PO BID PRN (Reason: anxiety ) Qty: 60 1RF Rx Instructions: 1-2 capsules as needed, up to twice daily for anxiety Discharge Orders: Discharge Order (Routine); Ordered 03/10/25 Ordered By: Chevy Kraft Patient Education: Hydrocodone/Acetaminophen (By mouth), Deep Sedation (DC), Post-Operative Instructions: Breast Surgery Additional Instructions: Post op mastectomy EDU given from [facility]. Activity Level: No strenuous activity Activity Detail: No strenuous activity or lifting more than 15-20 lbs with your left arm for 4 weeks. Take laxative such as MiraLax or senna daily for the first 7-10 days after surgery to prevent constipation. Discharge Diet: Regular Follow Up Appointments: Chevy Kraft MD [Staff Physician] - (1 week) Forms: [email or web address] Info Instructions
--- NOTE | 2025-03-10 16:16 | PC.NURSE ---
The patient discharged home with her this afternoon. Op site was redressed and re wrapped with GARY bandage. The patient tolerated this well. The patient also recognized new change of body image during the dressing change. CDI with steri strips, and drain gauze were changed as well. Post op teaching was given and reviewed with the patient as well. Belongings were accounted for and sent home with the patient. Encouraged to follow up if she has any change in condition or any questions or concerns. Megan DAWSON BSN
== END 2025-03-10 16:05 | disposition home or self-care (01) | DRG 581 ==
LOC: OR 14:29 → MEDSURG 14:29
PROVIDERS: Admitting Provider Surgery; PCP Physician Assistant Medical; Visit Provider Surgery
PROC: 0HTV0ZZ Resection of Bilateral Breast, Open Approach (ICD-10-PCS; principal; 2025-03-09 10:15)
PROC: 0HTV0ZZ Resection of Bilateral Breast, Open Approach (ICD-10-PCS; 2025-03-09 10:15)
DX: C50.312 Malignant neoplasm of lower-inner quadrant of left female breast (principal); Z17.0 Estrogen receptor positive status [ER+]; Z17.21 Progesterone receptor positive status; Z17.32 Human epidermal growth factor receptor 2 negative status; G89.18 Other acute postprocedural pain; F32.A Depression, unspecified; F41.9 Anxiety disorder, unspecified
CPT/HCPCS: 01610; 64488; 76942; 88307; 88341; 88342; A9270; J0665; J0666; J0690; J1171; J1885; J7120

== ENCOUNTER 2025-05-20 15:30 | Outpatient (RCR) | payer OTHER, SELFPAY ==
--- NOTE | 2025-04-09 13:20 | ONC.NURNOTE ---
Call to patient to see if she had further questions about endocrine therapy and/or if she had made a decision. She was ideally hoping to meet with integrative oncology at [facility] to help with her decision making. Once her consultation has been scheduled, [facility] will touch base with patient. At this time, patient is leaning towards trying one of the medications.
== END 2025-09-27 23:59 | disposition home or self-care (01) ==
LOC: CCIC 15:30
PROVIDERS: PCP Physician Assistant Medical; Visit Provider Physician Assistant
DX: C50.912 Malignant neoplasm of unspecified site of left female breast (principal); Z17.0 Estrogen receptor positive status [ER+]; E28.2 Polycystic ovarian syndrome; Z90.13 Acquired absence of bilateral breasts and nipples
CPT/HCPCS: 99202; 99205; 99214; 99215; G0463